=== PATIENT | male | born 1980 | race Caucasian/White ===

== ENCOUNTER 2021-01-15 17:16 | Emergency (ER) | payer BC ==
[~2021-01-15 17:16] MED LIST: Iopamidol 370 76% 100 ML VIAL ONE
[2021-01-15 18:47] LABS: #Basophils 0.1 thou/uL (0.0-0.2); #Eosinphils 0.1 thou/uL (0.0-0.7); #Lymphocytes 0.5 thou/uL (1.20-3.40); #Monocytes 0.6 thou/uL (0.11-0.59); #Neutrophils 13.4 thou/uL (1.40-6.50); %Basophils 0.8 % (0.0-1.0); %Eosinophils 0.4 % (0.0-10.0); %Lymphocytes 3.5 % (21.0-51.0); %Monocytes 4.3 % (0.0-10.0); Mean Corpuscular HGB CONC 32.4 g/dL (32.0-36.0); Mean Corpuscular Hemoglobin 30.5 pg (27.0-31.0); Mean Platelet Volume 11.4 fL (7.4-10.4); Platelet Count 190 thou/uL (130-400); RBC Distribution Width 12.4 % (11.5-14.5); Red Blood Cell (RBC) Count 5.59 mill/uL (4.70-6.10); White Blood Cell (WBC) Count 14.7 thou/uL (4.8-10.8)
[2021-01-15] MEDS ORDERED: Metoclopramide HCl 10 MG/2 ML VIAL ONE (18:57)
[2021-01-15] MEDS ORDERED: Ketorolac Tromethamine 30 MG/ML VIAL ONE (18:57)
[2021-01-15] MEDS ORDERED: diphenhydrAMINE 50 MG/ML VIAL ONE (18:57)
[2021-01-15 19:04] LABS: Anion Gap 16 mmol/L (10-20); BUN (Urea Nitrogen) 18 mg/dL (8.9-20.6); Calc. Creatinine Clearance 0 mL/min (70-130); Carbon Dioxide 25 mmol/L (22-29); Chloride 101 mmol/L (98-107); Potassium 4.2 mmol/L (3.5-5.1); Sodium 138 mmol/L (136-145)
[2021-01-15 19:05] LABS: ALT (SGPT) 47 U/L (8-55); AST (SGOT) 21 U/L (5-34); Albumin 4.7 g/dL (3.5-5.0); Alkaline Phosphatase 89 U/L (40-110); Bilirubin, Total 0.6 mg/dL (0.2-1.2); Calcium 9.1 mg/dL (7.8-10.44); Globulin 2.5 g/dL (2.4-3.5); Glucose 99 mg/dL (70-105); Lipase 11 U/L (8-78); Protein, Total 7.2 g/dL (6.0-8.3)
[2021-01-15 22:27] LABS: Bilirubin Negative (Negative); Blood, Urine Negative (Negative); Clarity Clear (Clear); Glucose, Urine (Dipstick) Negative (Negative); Ketone, Urine Negative (Negative); Leukocyte Negative (Negative); Nitrite Negative (Negative); Protein, Urine (Dipstick) Negative (Neg-Trace); Urobilinogen 0.2 mg/dL (Less than 2); pH, Urine 5.5 (5.0-9.0)
[2021-01-15 22:30] LABS: Specific Gravity, Urine 1.047 (1.002-1.036)
[2021-01-15 22:48] LABS: SARS-CoV-2 NAA Rapid Test Not Detected (NotDetected)
[2021-01-15] MEDS ORDERED: cefTRIAXone\\ROCEPHIN 2 GM VIAL ONE (23:01)
== END 2021-01-15 23:25 | disposition home or self-care (01) ==
LOC: BURERS 17:16
DX: B34.9 Viral infection, unspecified (principal); R00.0 Tachycardia, unspecified; Z20.822 Contact with and (suspected) exposure to COVID-19; F17.210 Nicotine dependence, cigarettes, uncomplicated
CPT/HCPCS: 0240U; 71045; 71275; 80053; 81003; 82550; 83605; 83690; 84484; 85025; 87040; 87804; 93005; 96365; 96375; J0696; J1200; J1885; J2765; Q9967